=== PATIENT | female | born 1960 | race Two or more races ===

== ENCOUNTER 2022-04-13 14:25 | Emergency (ER) | payer MEDICAID ==
[~2022-04-13] VITALS: Ht 154.9 cm; Wt 74.0 kg
[2022-04-13 14:35] VITALS: BP 147/84
[2022-04-13 15:09] LABS: Urine Bacteria FEW /hpf (None Seen); Urine Blood Negative /uL (Negative); Urine Specific Gravity 1.018 (1.001-1.035); Urine WBC 1 /hpf (0 - 5)
[2022-04-13 15:18] LABS: Basophils # (auto) 0 10 ^3/uL (0-0.2); Basophils % (auto) 0.5 % (0.0-2.0); Eosinophils # (auto) 0.1 10 ^3/uL (0-0.8); Eosinophils % (auto) 1.6 % (0.0-7.0); Hematocrit 43.4 % (36.0-46.0); Hemoglobin 13.9 g/dL (12.2-16.2); Lymphocytes # (auto) 2.8 10 ^3/uL (0.4-5.4); Mean Corpuscular Hemoglobin 27.7 pg (28.0-32.0); Mean Corpuscular Hgb Conc. 32.1 g/dL (32.0-36.0); Mean Corpuscular Volume 86.3 fL (80.0-100.0); Monocytes # (auto) 0.5 10 ^3/uL (0-1.3); Monocytes % (auto) 6.1 % (0.0-12.0); Neutrophils # (auto) 4.8 10 ^3/uL (1.6-8.6); Neutrophils % (auto) 57.8 % (37.0-80.0); Red Blood Cells 5.03 10^6/uL (4.0-5.20); Red Cell Distribution Width 15.6 % (11.8-14.3); White Blood Cell 8.2 10^3/uL (4.4-10.8)
[2022-04-13 15:39] LABS: Albumin 3.4 g/dL (3.4-5.0); Calcium 9.3 mg/dL (8.5-10.1); Potassium 3.4 mmol/L (3.5-5.1)
[2022-04-13 15:42] LABS: BUN/Creatinine Ratio 30.4; Bilirubin, Total 0.2 mg/dL (0.2-1.0); Total Protein 7.1 g/dL (6.4-8.2)
== END 2022-04-13 16:21 | disposition home or self-care (01) ==
LOC: ER 14:25
DX: R06.00 Dyspnea, unspecified (principal); M79.632 Pain in left forearm; E78.5 Hyperlipidemia, unspecified; I10 Essential (primary) hypertension; Z90.710 Acquired absence of both cervix and uterus
CPT/HCPCS: 36415; 71045; 73090; 80053; 81001; 84484; 85025

== ENCOUNTER 2022-05-17 23:59 | Emergency (ER) | payer MEDICAID ==
[~2022-05-17] VITALS: Ht 154.9 cm; Wt 72.7 kg
[2022-05-18] MEDS ORDERED: HYD1TP TOP (03:07)
[2022-05-18] MEDS ORDERED: PRED20TA2 PO (03:07)
[2022-05-18] MEDS ORDERED: methylPREDNISolone ACETATE 80 MG/ML VL IM ONE (03:15)
[2022-05-18 03:30] VITALS: BP 112/78
[2022-05-18] MEDS ORDERED: diphenhdrAMINE HCL 25 MG CAP PO ONE (03:30)
== END 2022-05-18 03:15 | disposition home or self-care (01) ==
LOC: ER 05-18 00:01
DX: M10.9 Gout, unspecified (principal); E78.5 Hyperlipidemia, unspecified; I10 Essential (primary) hypertension; Z90.710 Acquired absence of both cervix and uterus; Z88.0 Allergy status to penicillin
CPT/HCPCS: 73080; 96372; 99283; J1040

== ENCOUNTER 2023-10-27 08:28 | Emergency (ER) | payer MEDICAID ==
[~2023-10-27] VITALS: Ht 154.9 cm; Wt 99.2 kg
[~2023-10-27 08:28] MED LIST: HYD1TP TOP; PRED20TA2 PO
[2023-10-27 09:09] VITALS: BP 129/80; PULSE 74; RESP 16; TEMP 98.1; O2SAT 94
[2023-10-27] MEDS ORDERED: METH-1182 PO (09:22)
[2023-10-27] MEDS ORDERED: LIDO5CRE14 EX (09:22)
== END 2023-10-27 09:27 | disposition home or self-care (01) ==
LOC: ER 08:28
DX: M72.2 Plantar fascial fibromatosis (principal); E78.5 Hyperlipidemia, unspecified; I10 Essential (primary) hypertension; Z90.710 Acquired absence of both cervix and uterus; Z88.0 Allergy status to penicillin; Z91.040 Latex allergy status

== ENCOUNTER 2023-11-04 07:06 | Emergency (ER) | payer MEDICAID ==
[~2023-11-04] VITALS: Ht 157.5 cm; Wt 95.0 kg
[~2023-11-04 07:06] MED LIST changes: +LIDO5CRE14 EX; +METH-1182 PO
[2023-11-04] MEDS: KETOROLAC TROMETH 60MG/2ML VIAL IM ONE (08:19)
[2023-11-04 08:22] VITALS: BP 109/73; PULSE 72; RESP 20; TEMP 98.4; O2SAT 95
[2023-11-04] MEDS ORDERED: PRED20TA2 PO (08:24)
[2023-11-04] MEDS ORDERED: TRAM-626 PO (08:24)
== END 2023-11-04 08:32 | disposition home or self-care (01) ==
LOC: ER 07:06
DX: M17.12 Unilateral primary osteoarthritis, left knee (principal); E78.5 Hyperlipidemia, unspecified; I10 Essential (primary) hypertension; Z90.710 Acquired absence of both cervix and uterus; Z88.0 Allergy status to penicillin; Z91.040 Latex allergy status
CPT/HCPCS: 73562; 96372; 99283; J1885